=== PATIENT | female | born 1945 | race Caucasian/White ===

== ENCOUNTER 2016-08-13 05:57 | Day surgery (SDC) | payer MEDICARE ==
[~2016-08-13] VITALS: Ht 177.8 cm; Wt 81.5 kg
--- NOTE | ~2016-08-13 | CATH ---
Cardiac Diagnostic Report Demographics Patient Name PETERSON Fernandez Gender Female Date of 1945 Age 71 year(s) Patient Number [id number] Date of Study 08/13/2016 Visit Number [id number] Room Number G6399 [place] [id number] Ht 177.8 cm Wt 81.5 kg Referring Julio Love I Primary Physician Physician MITUL Performing [place] Secondary Physician Physician Zaida MCALLISTER Diagnostic [facility] Assisting Physician Physician Zaida MCALLISTER Interventional Physician [employer] Ii Assembler Physician Findings and Conclusions Diagnostic Findings and Conclusion Essentially normal epicardial coronaries without any angiographic evidence of luminal obstruction. No pulmonary hypertention. Mean PA pressure 19 mmHg, RA pressure is 5 mmHg, PCWP 10 mmHg, LVEDP 11 mmHg. PA sat 75.9% Diagnostic Recommendations Medical therapy for cardiomyopathy. NATALIA revealed moderate MR, continue f/u with serial echocardiograms to monitor progression of MR. Procedure Description The patient was brought to the diagnostic cardiac catheterization-EP laboratory in the fasting, non-sedated state. Informed consent was obtained in the written and verbal form after the risks and benefits were explained. The patient had no further questions and agreed to proceed. The planned puncture-incision site(s) were shaved and prepped with ChloraPrep and draped in the usual sterile manner. Conscious sedation, supplemental oxygen, and pain control medications were delivered by a registered nurse under physician guidance. Surface ECG rhythm, blood pressure measurement, and pulse oximetry were monitored throughout the procedure. Arterial access. The access site was infiltrated with lidocaine. The vessel was entered with the Seldinger technique. A sheath was advanced into the vessel and used for catheter placement. Venous access. The access site was infiltrated with 1% lidocaine. The vessel was entered with the Seldinger technique. A sheath was advanced into the vessel and used for catheter placement. Right heart catheterization. A [place] Anuj catheter was successfully advanced to the right atrium, right ventricle, pulmonary artery, and pulmonary artery wedge position under fluoroscopic guidance. Resting hemodynamics were obtained. Measurements included pressures, arterial and venous oxygen saturation samples, and cardiac output. The [place] was removed without difficulty. Selective left coronary angiography. A catheter was advanced into the left coronary vessel ostium under Fluoroscopic guidance. Contrast was injected by hand. Images were obtained in multiple projections. Selective right coronary angiography. A catheter was advanced into the right coronary vessel ostium under fluoroscopic guidance. Contrast was injected by hand. Images were obtained in multiple projections. Left heart catheterization. A catheter was advanced across the aortic valve to the left ventricle under fluoroscopic guidance. Resting hemodynamics were obtained. Arterial and Venous hemostasis was achieved. The patient was transferred to [facility] via cart accompanied by a nurse. The patient left the laboratory in stable condition. Diagnostic Cath Status: Elective Procedure Procedure Type Diagnostic procedure:Angiography:, Right and Left Heart Cath, Coronary Angios Indications: Mitral Regurgation, Hypertension, Left Bundle Branch Block (LBBB) and Cardiomyopathy. The procedure was explained in detail to the patient. Risks, complications and alternative treatments were reviewed. Written consent was obtained. Medications Reviewed with Patient prior to Procedure. Angiographic Findings Dominance: Right Cardiac Arteries and Lesion Findings LMCA: Normal (0% Stenosis). LAD: Normal (0% Stenosis). LCx: Normal (0% Stenosis).Small and non dominant. RCA: Normal (0% Stenosis). Ramus: Normal (0% Stenosis). Procedure Data Procedure Date Date: 08/13/2016Start: 09:22 AMEnd: 09:59 AM Entry Locations - Retrograde Percutaneous access was performed through the Right Radial artery (Primary location). A 6 Fr sheath was inserted. Hemostasis was successfully obtained using Mechanical Compression. Closure Comments: 13 ml's of air in Radial band placed by [place] Ladd.. - Antegrade Percutaneous access was performed through the Right Antecubital. A 6 Fr sheath was inserted. Hemostasis was successfully obtained using Manual Compression. Entry Comments: Anticubital vein accessed for right heart cath.. Closure Comments: Manual pressure held by Azeb Ladd for 15 minutes.. Procedure Medications Order and Administration + + + +-------+ !Time !Medication !Dosage !Route ! + + + +-------+ !08/13/2016 09:22 AM !Versed !1 mg !I.V. ! + + + +-------+ !08/13/2016 09:22 AM !Fentanyl !50 mcg !I.V. ! + + + +-------+ !08/13/2016 09:25 AM !Radial Verapamil !2.5 mg !I.A. ! + + + +-------+ !08/13/2016 09:47 AM !Oxygen ! ! ! + + + +-------+ !08/13/2016 09:33 AM !Heparin (ACC_3) !5000 units !I.V. ! + + + +-------+ Devices Used - A6 Fr. Balloon Wedge Catheterwas used for:Right heart cath. - A5 Fr. BS JR 4 Diag. Catheterwas used for:LV Pressures. - A5 Fr. BS JL 3.5 Diag. Catheterwas used for:Left coronary angiography. Contrast Material - Isovue 90126 ml Fluoroscopy Time: Diagnostic: 5:42 minutes. Total: 5:42 minutes. Fluoroscopy Dose: Diagnostic: 670 mGy. Total: 670 mGy. Estimated Blood Loss: 10 ml. Medical History Performed Procedures and Imaging Results - No ACC stress or imaging studies were performed. History of Disease + +----+--------+ !Diagnosis !Date!Comments! + +----+--------+ !Valvular heart disease ! ! ! + +----+--------+ !Hypertension ! ! ! + +----+--------+ Allergies - Penicillin. - Sulfa. - Other:(Quinolones). - Iodine. - Other:(doxycycline, terbinafine, levofloxacin). Risk Factors The patient risk factors include:treated hypertension, last creatinine: 0.8 mg/dl, creatinine clearance: 81.78 ml/min and prior heart failure . Admission Data Admission Date: 08/13/2016 Admission Time: 05:57 AM Admit Source: Other Insurance Payors: Medicare. Admission Medications + +------+------+ + + + + !Medication !Dosage!Times !Last !Last !Administered !Comments ! ! ! !Per !Delivery !Delivery ! ! ! ! ! !Day !Date !Time ! ! ! + +------+------+ + + + + !Aspirin ! ! ! ! !Yes ! ! !(any) ! ! ! ! ! ! ! + +------+------+ + + + + !KRYSTINA ! ! ! ! !Yes ! ! !Inhibitor ! ! ! ! ! ! ! !(any) ! ! ! ! ! ! ! + +------+------+ + + + + Clinical Evaluation Leading to Procedure - The patient's CAD presentation was assessed as: Symptom unlikely to be ischemic. - The patient's anginal syndrome during the past two weeks was assessed as: Class II according to the [place] Cardiovascular Society Classification System (CCS). - The patient has been in a state of heart failure within the past two weeks. - The patient's heart failure status was assessed as NYHA Class II, with CHF symptoms of HUNT. - The reason for the patient's bundle tier and labeler visit is evaluation of cardiomyopathy and/or evaluation of left ventricular systolic dysfunction, and pre-operative evaluation before non-cardiac surgery. Hemodynamics Condition: Rest O2 Consumption: Estimated: 186.32Heart Rate: 75 bpm Oxygen Saturation +--------+-----+----+ +----+ + !Location!pCO2 !pO2 !% Saturation !Hgb !O2 Content ! +--------+-----+----+ +----+ + !PA ! ! !75.9 !13.3! ! +--------+-----+----+ +----+ + !AO ! ! !96 !13.3! ! +--------+-----+----+ +----+ + !RA ! ! !76.4 !13.3! ! +--------+-----+----+ +----+ + Pressures (mmHg) +-----+ + !Site !Pressure ! +-----+ + !PA ! () ! +-----+ + !PCW !29/01 () ! +-----+ + !RV !/ ,9 ! +-----+ + !RA !/ (5) ! +-----+ + !LV !131/2 ,8 ! +-----+ + !LV !138/4 ,11 ! +-----+ + !LV !134/3 ,10 ! +-----+ + !AO !127/59 (89) ! +-----+ + !LV !134/3 ,11 ! +-----+ + !AO !124/58 (87) ! +-----+ + Cardiac Output +------+ + + + !Method!CO (l/min) !CI (l/min/m2) !SV (ml) ! +------+ + + + !Elfego !5.13 !2.6 !68.28 ! +------+ + + + Valve Gradients and Areas + +--------+--------+--------+---------+ + + !Valve !Peak !Mean !Area !Index !Flow !Source ! + +--------+--------+--------+---------+ + + !Aortic !10 !10 !1.82 !0.91 !254.46 !Elfego ! + +--------+--------+--------+---------+ + + !Aortic !10 !10 ! ! ! ! ! + +--------+--------+--------+---------+ + + Shunts Oxygen Values O2 Capacity 180.88 O2 Consumption 186.32 Flows (l/min) Qs 5.26 Qe/Qp 1.03 Qp 5.13 Qp/Qs 0.98 Qe 5.26 Vascular Resistance (dynes x sec x cm-5) + +-----+-----+----+----+---------+-------+ !CO method !TSVR !SVR !TPVR!PVR !TPVR/TSVR!PVR/SVR! + +-----+-----+----+----+---------+-------+ !Elfego !17.03!16.01!3.68!1.66!0.22 !0.1 ! + +-----+-----+----+----+---------+-------+ !Qp or Qs !16.61!15.61!3.68!1.66!0.22 !0.11 ! + +-----+-----+----+----+---------+-------+ Discharge Data Discharge Date: 08/13/2016 Hospital Status: Outpatient Signatures dtt: ZAIDA CASTILLO dtd: 08/13/16 0922 Physician Self Edit
--- NOTE | ~2016-08-13 | ECHO ---
Transesophageal Echocardiography Report (NATALIA) Demographics Patient Name BOOM WINKLER Date of Study 08/13/2016 Patient Number [id number] Visit Number [id number] Date of 1945 Room Number G6399 Gender Female Number Age 71 year(s) Referring Simon Cerda [employer] Senior Officer Abhijeet Chairez Physician RDCS, RVT Physician Interpreting Simon Cerda Dump Motor Operator Physician MD Supervising Ordering Simon Cerda MD/MLP Physician Nurse Stress Wood Fence Erector Conclusions Summary Procedural difficulty: none. Mildly reduced LV systolic function. LVEF about 40%. Normal RV size and systolic function. Normal biatrial sizes. Moderate MR. Mild prolapse of the posterior leaflet of the MV. TV is grossly normal. Trace TR. 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 Mild AV sclerosis. Mild AI. There is no thrombus in the left atrial appendage. There is no evidence of patent foramen ovale or atrial septal defect by color Doppler. Procedure Type of Study NATALIA procedure:Color Doppler. Procedure Date Date: 08/13/2016 Start: 08:37 AM Study Location: Automobile Rental Agent Technical Quality: Adequate visualization Indications:Mitral Regurgation. Appropriate Use Criteria: 9 Patient Status: Routine HR: 85 bpm BP: 169/82 mmHg O2 Saturation: 98 % NATALIA Performed By: the attending and the arc welder Type of Anesthesia: Moderate sedation Allergies - Penicillin. - Sulfa. - Other:(Quinolones). - Iodine. - Other:(doxycycline, terbinafine, levofloxacin). Findings Left Atrium There is no thrombus in the left atrial appendage. There is no evidence of patent foramen ovale or atrial septal defect by color Doppler. Pulmonic Valve PV is grossly normal. Miscellaneous The patient was brought to the [facility] lab in the fasting state after informed consent was obtained in the written and verbal format. She was prepped with Lidocaine gel and Cetacaine spray as usual. Bite block was placed by me. Once adequate anesthesia was obtained with anesthesia guidance with propofol sedation the NATALIA probe was placed by me down into the stomach. It was pulled back slightly after a few views were obtained in the transgastric level to the transesophageal position where the majority of the case was carried out. At the end of the case the probe was rotated and withdrawn. Patient tolerated the procedure well. Signature dtt: DIOGO CASTILLO dtd: 08/13/16 0837 Physician Self Edit
[~2016-08-13 05:57] MED LIST: ACIDOPHILUS1 EAC3 PO; ALLERGY RELIEF10 M3 PO; ASPIRIN325 MG PO; CLOBETASOL PROP60 G2 TOP; COZAAR50 MG PO; FLONASE 50 MCG/16 GM NOSE; HYDRODIURIL25 MG PO; LEVOTHROID (S137 MCG PO; MELATONIN3 MG PO; MOBIC15 MG PO; POTASSIUM99 MG PO; PRILOSEC20 MG PO; VITAMIN D1000 UNIT PO; [UNRECOGNIZED DRUG - MIXTURE] PO; [UNRECOGNIZED DRUG - OTHER] PO; [UNRECOGNIZED DRUG - OTHER] PO; [UNRECOGNIZED DRUG - OTHER] PO; [UNRECOGNIZED DRUG - OTHER] PO; [UNRECOGNIZED DRUG - OTHER] PO; [UNRECOGNIZED DRUG - OTHER] PO; [UNRECOGNIZED DRUG - OTHER] PO
[2016-08-13 06:57] LABS: BASOPHIL % 0.5 %; EOSINOPHIL % 0.9 %; HEMATOCRIT 39.6 % (33.0-46.0); HEMOGLOBIN 13.3 g/dL (10.0-15.0); IMMATURE GRANULOCYTE % 0.2 %; LYMPHOCYTE # 1.8 K/uL (0.8-4.0); LYMPHOCYTE % 40.8 %; MCH 29.2 pg (27.0-34.0); MCHC 33.6 gm/dL (32.0-36.5); MONOCYTE # 0.4 K/uL (0.0-1.0); MONOCYTE % 9.1 %; MPV 9.7 fl (9.4-12.4); NEUTROPHIL # (ANC) 2.1 K/uL (1.8-7.8); NEUTROPHIL % 48.5 %; NRBC % 0 /100WBC (0-0.00); PLATELET COUNT 272 K/uL (150-450); RBC 4.55 M/uL (3.50-5.50); RDW-CV 12.5 % (11.9-14.6); WBC 4.3 K/uL (4.0-11.0)
[2016-08-13 07:11] LABS: INR - (THERAPEUTIC) 0.98 (0.92-1.07); PROTIME 10.3 SECONDS (9.8-11.4); PTT 28 SECONDS (25-32)
[2016-08-13 07:15] LABS: ALBUMIN 3.7 gm/dL (3.5-5.0); ALK PHOS 77 IU/L (33-138); ALT 20 IU/L (12-78); BLOOD UREA NITROGEN 14 mg/dL (6-24); CHLORIDE 102 mMol/L (96-110); CO2 29 mMol/L (22-32); CREATININE 0.8 mg/dL (0.5-1.1); SODIUM 138 mMol/L (135-145); TOTAL BILIRUBIN 0.3 mg/dL (0.0-1.5); TOTAL PROTEIN 7.4 g/dL (6.0-8.4)
[2016-08-13 07:16] LABS: ANION GAP 11.3 (10.0-19.0); AST 22 IU/L (10-40)
[2016-08-13 07:17] LABS: ESTIMATED GFR (MDRD EQUATION) > 60; POTASSIUM 4.3 mMol/L (3.7-5.1)
--- NOTE | 2016-08-13 13:00 | NUR ---
D: r-band removed. No drainage noted at puncture site. Eladia and coban applied. Wrist precautions reviewed with patient. Radial pulse 2+. Fingers cool to touch and pink.
== END 2016-08-13 13:25 | disposition disaster alternative care site (69) ==
LOC: GSDC 05:57 → GPCU 05:57 → EDSTATUS 06:00 → GPOC 06:00 → GSDC 13:25
PROVIDERS: Internal Medicine Interventional Cardiology
PROC: B246ZZ4 Ultrasonography of Right and Left Heart, Transesophageal (ICD-10-PCS; principal; 2016-08-13)
PROC: B2111ZZ Fluoroscopy of Multiple Coronary Arteries using Low Osmolar Contrast (ICD-10-PCS; principal; 2016-08-13)
PROC: 4A023N8 Measurement of Cardiac Sampling and Pressure, Bilateral, Percutaneous Approach (ICD-10-PCS; principal; 2016-08-13)
DX: I42.9 Cardiomyopathy, unspecified (principal); I34.0 Nonrheumatic mitral (valve) insufficiency; I44.7 Left bundle-branch block, unspecified; I10 Essential (primary) hypertension; E03.9 Hypothyroidism, unspecified; K21.9 Gastro-esophageal reflux disease without esophagitis; M20.40 Other hammer toe(s) (acquired), unspecified foot; H26.9 Unspecified cataract; L97.509 Non-pressure chronic ulcer of other part of unspecified foot with unspecified severity; E78.00 Pure hypercholesterolemia, unspecified; E11.9 Type 2 diabetes mellitus without complications; J43.9 Emphysema, unspecified; M19.90 Unspecified osteoarthritis, unspecified site; Z79.82 Long term (current) use of aspirin; Z79.899 Other long term (current) drug therapy; Z79.51 Long term (current) use of inhaled steroids; Z86.718 Personal history of other venous thrombosis and embolism; Z91.09 Other allergy status, other than to drugs and biological substances
CPT/HCPCS: C1894; J1644; J2250; J2930; J3010; J7030